=== PATIENT | male | born 1935 | race Caucasian/White ===

== ENCOUNTER 2017-02-14 12:03 | Inpatient (IN) | payer OTHER, MEDICARE ==
[~2017-02-14] VITALS: Ht 172.7 cm; Wt 71.4 kg
[2017-02-14] VITALS (10 sets, daily range): BP systolic 112–216; BP diastolic 58–114; PULSE 74–97; RESP 16–25; TEMP 97.6–99.1; O2SAT 95–100
[2017-02-14] MEDS ORDERED: HEPARIN SODIUM - IV 10,000 UNITS/10 ML VIAL IV STA (12:28)
[2017-02-14] MEDS ORDERED: SODIUM CHLOR 0.9% 1000 ML INJ 1,000 ML IV ONE (12:28)
--- NOTE | 2017-02-14 12:28 | PD ---
HPI Chief Complaint: Chest Pain Time Seen by Provider: 12:24 Travel History International Travel<30 days: No Contact w/Intl Traveler<30days: No Traveled to known affect area: No History of Present Illness HPI 81 year old male with history of hypertension, hyperlipidemia, Alzheimer disease , hypothyroidism, presents to the emergency department for evaluation of right sided chest pain. Acute onset yesterday while doing "nothing." Patient states at that time it was sharp and crushing. He states now it is "just enough to know that it is there." Denies any recent illnesses, fever, chills. States the pain does not radiate anywhere. Not exacerbated with deep inspiration. No report shortness of breath. Patient did feel lightheaded at the onset of the pain. He has not been nauseous. He has had no diaphoresis. He has no other symptoms to report at this time. PFSH Past Medical History Alzheimer's Disease: Yes Hypertension: Yes Thyroid Disease: Yes ?: Not Social History Tobacco Use: No Allergies-Medications (Allergen,Severity, Reaction): Coded Allergies: No Known Allergies (Unverified , 02/14/17) Review of Systems Except as stated in HPI: all other systems reviewed are Neg Physical Exam Narrative GENERAL: Well-nourished elderly male patient, lying in bed, in no acute distress SKIN: Focused skin assessment warm/dry. HEAD: Atraumatic. Normocephalic. EYES: Pupils equal and round. No scleral icterus. No injection or drainage. ENT: No nasal bleeding or discharge. Mucous membranes pink and moist. NECK: Trachea midline. No JVD. CARDIOVASCULAR: Regular rate and rhythm. No murmur appreciated. RESPIRATORY: No accessory muscle use. Clear to auscultation. Breath sounds equal bilaterally. GASTROINTESTINAL: Abdomen soft, non-tender, nondistended. Hepatic and splenic margins not palpable. MUSCULOSKELETAL: No obvious deformities. No clubbing. No cyanosis. No edema. NEUROLOGICAL: Awake and alert. No obvious cranial nerve deficits. Motor grossly within normal limits. Normal speech. Data Data Last Documented VS Vital Signs Date Time Temp Pulse Resp B/P Pulse Ox O2 Delivery O2 Flow Rate FiO2 02/14/17 12:30 99 Room Air 02/14/17 12:28 74 24 142/75 119/58 02/14/17 12:15 97.6 Orders Electrocardiogram (02/14/17 12:18) Basic Metabolic Panel (Bmp) (02/14/17 12:18) Ckmb (Isoenzyme) Profile (02/14/17 12:18) Complete Blood Count With Diff (02/14/17 12:18) Magnesium (Mg) (02/14/17 12:18) Prothrombin Time / Inr (Pt) (02/14/17 12:18) Act Partial Throm Time (Ptt) (02/14/17 12:18) Troponin I (02/14/17 12:18) Lipase (02/14/17 12:18) Chest, Single Ap (02/14/17 12:18) Ecg Monitoring (02/14/17 12:18) Bilateral Bp Monitoring (02/14/17 12:18) Iv Access Insert/Monitor (02/14/17 12:18) Oximetry (02/14/17 12:18) Oxygen Administration (02/14/17 12:18) Aspirin Chew (Aspirin Chew) (02/14/17 12:30) Sodium Chloride 0.9% Flush (Ns Flush) (02/14/17 12:30) Nitroglycerin Sl (Nitrostat Sl) (02/14/17 12:30) Sodium Chlorid 0.9% 500 Ml Inj (Ns 500 M (02/14/17 12:30) I-Stat Profile (02/14/17 12:28) I-Stat Creatinine (02/14/17 12:28) Calcium (02/14/17 12:28) Magnesium (Mg) (02/14/17 12:28) B-Type Natriuretic Peptide (02/14/17 12:28) Sodium Chlor 0.9% 1000 Ml Inj (Ns 1000 M (02/14/17 12:28) Sodium Chloride 0.9% Flush (Ns Flush) (02/14/17 12:30) Heparin Inj (Heparin Inj) (02/14/17 12:28) Admit Order (Ed Use Only) (02/14/17 12:32) Cardiac Catheterization (02/14/17 ) Heparin-Ns/Pf Inj (Heparin-Ns/Pf Inj) (02/14/17 12:34) MDM Medical Decision Making Medical Screen Exam Complete: Yes Emergency Medical Condition: Yes Medical Record Reviewed: Yes Differential Diagnosis ACS versus pleuritic pain versus costochondritis versus pneumonia versus influenza Narrative Course 81-year-old male presents to Emergency department for evaluation right sided chest pain. EKG is complete shows ST elevation in lead II, III, and aVF with depression in anterolateral leads. It is reviewed by my attending physician Dr. Amador who contacted medical administrative Dr. Duarte. Please refer to his documentation. 1228 STEMI alert is initiated. Diagnosis Primary Impression: STEMI (ST elevation myocardial infarction) Qualified Code: I21.3 - ST elevation myocardial infarction (STEMI), unspecified artery Admitting Information Admitting Physician Requests: Admit Condition: Stable Darline Escobar Feb 14, 2017 12:28
--- NOTE | 2017-02-14 12:28 | PD ---
Physical Exam Narrative Patient was seen by my project construction assistant manager and me. 81-year-old male with right-sided chest pain since yesterday. History hypertension and hyperlipidemia. Patient is a nonsmoker. Patient has family history heart disease. Patient denies history diabetes. Denies history of CAD. Data Data Last Documented VS Vital Signs Date Time Temp Pulse Resp B/P Pulse Ox O2 Delivery O2 Flow Rate FiO2 02/14/17 12:35 100 2.00 02/14/17 12:35 Nasal Cannula 02/14/17 12:28 74 24 142/75 119/58 02/14/17 12:15 97.6 Orders Electrocardiogram (02/14/17 12:18) Basic Metabolic Panel (Bmp) (02/14/17 12:18) Ckmb (Isoenzyme) Profile (02/14/17 12:18) Complete Blood Count With Diff (02/14/17 12:18) Magnesium (Mg) (02/14/17 12:18) Prothrombin Time / Inr (Pt) (02/14/17 12:18) Act Partial Throm Time (Ptt) (02/14/17 12:18) Troponin I (02/14/17 12:18) Lipase (02/14/17 12:18) Chest, Single Ap (02/14/17 12:18) Ecg Monitoring (02/14/17 12:18) Bilateral Bp Monitoring (02/14/17 12:18) Iv Access Insert/Monitor (02/14/17 12:18) Oximetry (02/14/17 12:18) Oxygen Administration (02/14/17 12:18) Aspirin Chew (Aspirin Chew) (02/14/17 12:30) Sodium Chloride 0.9% Flush (Ns Flush) (02/14/17 12:30) Nitroglycerin Sl (Nitrostat Sl) (02/14/17 12:30) Sodium Chlorid 0.9% 500 Ml Inj (Ns 500 M (02/14/17 12:30) I-Stat Profile (02/14/17 12:28) I-Stat Creatinine (02/14/17 12:28) Calcium (02/14/17 12:28) Magnesium (Mg) (02/14/17 12:28) B-Type Natriuretic Peptide (02/14/17 12:28) Sodium Chlor 0.9% 1000 Ml Inj (Ns 1000 M (02/14/17 12:28) Sodium Chloride 0.9% Flush (Ns Flush) (02/14/17 12:30) Heparin Inj (Heparin Inj) (02/14/17 12:28) Admit Order (Ed Use Only) (02/14/17 12:32) Cardiac Catheterization (02/14/17 ) Heparin-Ns/Pf Inj (Heparin-Ns/Pf Inj) (02/14/17 12:34) MDM Supervised Visit with SHELLEY: Yes Interpretation(s) Creatinine 1.5. Narrative Course Patient has ST elevation in [address] depression on anterior lateral leads. I spoke with Dr. Duarte, sewing department supervisor on-call. STEMI protocol will be initiated. Diagnosis Primary Impression: STEMI (ST elevation myocardial infarction) Qualified Code: I21.3 - ST elevation myocardial infarction (STEMI), unspecified artery Additional Impression: Renal insufficiency Admitting Information Admitting Physician Requests: it Derian Amador MD Feb 14, 2017 12:28
[2017-02-14] MEDS ORDERED: ASPIRIN 81 MG CHEW TAB PO ONE (12:30)
[2017-02-14] MEDS ORDERED: SODIUM CHLORID 0.9% 500 ML INJ 500 ML IV ONE (12:30)
[2017-02-14] MEDS ORDERED: NITROGLYCERIN 0.4 MG SL 25 TABS/BTL SL SCH (12:30)
[2017-02-14] MEDS ORDERED: SODIUM CHLORIDE 0.9% FLUSH 10 ML FLUSH IVF PRN ×2 (12:30)
[2017-02-14] MEDS ORDERED: HEPARIN-NS/PF INJ 500 ML ONE (12:34)
[2017-02-14] MEDS ORDERED: MEMA1TAB2 PO (12:36)
[2017-02-14] MEDS ORDERED: LISI-515 PO (12:36)
[2017-02-14] MEDS ORDERED: CYAN100025 SL (12:36)
[2017-02-14] MEDS ORDERED: DONE10TA7 PO (12:36)
[2017-02-14] MEDS ORDERED: GABA300C5 PO (12:36)
[2017-02-14] MEDS ORDERED: CO Q100C9 (12:36)
[2017-02-14] MEDS ORDERED: LEVO50TA4 PO (12:36)
[2017-02-14] MEDS ORDERED: SIMV40TA PO (12:36)
[2017-02-14] MEDS ORDERED: ASPI81CH CHEW (12:36)
[2017-02-14] MEDS ORDERED: VITA1000 PO (12:36)
[2017-02-14] MEDS ORDERED: CARB25TA9 PO (12:36)
--- NOTE | 2017-02-14 12:40 | RADRPT ---
EXAM DATE/TIME: 02/14/2017 12:18 [place] COMPARISON: No previous studies available for comparison. INDICATIONS : Chest pain. Stemi Alert. MEDICAL HISTORY : None. SURGICAL HISTORY : None. ENCOUNTER: Initial ACUITY: 1 day PAIN SCORE: 10/10 LOCATION: Bilateral chest FINDINGS: A single view of the chest demonstrates the lungs to be symmetrically aerated without evidence of mas s, infiltrate or effusion. The cardiomediastinal contours are unremarkable. Osseous structures are intact. CONCLUSION: No acute disease. Curtis Adam MD on February 14, 2017 at 12:38 Board Certified Radiologist. This report was verified electronically.
[2017-02-14] MEDS ORDERED: ASPIRIN 81 MG CHEW TAB ONE (12:41)
[2017-02-14] MEDS ORDERED: HEPARIN SODIUM - IV 10,000 UNITS/10 ML VIAL ONE (12:41)
[2017-02-14] MEDS ORDERED: NITROGLYCERIN-DEXTROSE INJ 250 ML ONE (12:41)
[2017-02-14 12:54] LABS: AUTOMATED NEUTROPHIL # 7.8 TH/MM3 (1.8-7.7); BASOPHIL % 0.1 % (0.0-2.0); EOSINOPHIL # 0.1 TH/MM3 (0-0.4); EOSINOPHIL % 0.5 % (0.0-4.0); HEMATOCRIT 43.5 % (39.0-51.0); HEMO FLAGS DIFF FINAL; LYMPH % 23.8 % (9.0-44.0); LYMPHOCYTE # 2.7 TH/MM3 (1.0-4.8); MEAN CELL VOLUME 88.4 FL (80.0-100.0); MEAN CORPUSCULAR HEMOGLOBIN 29.3 PG (27.0-34.0); MEAN CORPUSCULAR HGB CONC 33.1 % (32.0-36.0); MONO % 7.6 % (0.0-8.0); PLATELET COUNT 185 TH/MM3 (150-450); RED BLOOD COUNT 4.92 MIL/MM3 (4.50-5.90); RED CELL DISTRIBUTION WIDTH 12.8 % (11.6-17.2); WHITE BLOOD COUNT 11.4 TH/MM3 (4.0-11.0)
[2017-02-14 12:59] LABS: APTT (PATIENT) 26.3 SEC (24.3-30.1); INTERNATIONAL NORMALIZED RATIO 1.1 RATIO; PROTHROMBIN TIME - PATIENT 12.6 SEC (9.8-11.6)
[2017-02-14] MEDS ORDERED: MIDAZOLAM HCL 2 MG/2 ML VIAL ONE (13:02)
[2017-02-14 13:03] LABS: MAGNESIUM 2.3 MG/DL (1.5-2.5)
[2017-02-14] MEDS ORDERED: SODIUM CHLOR 0.9% 1000 ML INJ 1,000 ML IV SCH (13:22)
[2017-02-14 13:24] LABS: BICARBONATE 23.6 MEQ/L (21.0-32.0); MAGNESIUM 2.3 MG/DL (1.5-2.5); POTASSIUM 4.1 MEQ/L (3.5-5.1)
[2017-02-14] MEDS ORDERED: MISC INFORMATION XX ONE (13:30)
[2017-02-14] MEDS ORDERED: SODIUM CHLOR 0.9% 250 ML INJ 250 ML IV PRN (13:30)
[2017-02-14] MEDS ORDERED: ATROPINE SULFATE 1 MG/ML VIAL IV PRN (13:30)
--- NOTE | 2017-02-14 13:35 | CATHPROC ---
nuPSYS HIS Report Study Information Study Number Scheduled Start Study Start [id number] 02/14/2017 Feb 14 2017 12:37PM Referring Institution Facility Department 1 [facility] - Team Facilitator Physician and Clinical Staff Initial Cooper Drew Management Accounts Manager Pankaj Reeves,RN Management Accounts Manager Marcelo RN, Landen Recorder Leonel Lovett,RT(R) Scrub Jaxon Vargas,RT(R) Procedures Performed Procedure Location (Site) Vessel Name Angiogram LV LV Ventricle Coronary Angiograms LCA Left Coronary Coronary Angiograms RCA Right Coronary L Heart Cath PTCA ADD ON'S Equipment Time Executive Administrative Asst Description Size Mfg Part Number Used/Scraped TRANSDUCER, TRUWAVE [id number] 12:38 [employer]reme[employer] * Used W/STOCKCOCK *[id number] 13:11 [employer] MEDICAL VASCADE, FR6 CLOSURE SYSTEM FR 6\7 Used *[id number] *[id number] 534-620T *[id number] 534-650S *[id number] 534-650S *[id number] 12:38 [employer] PACK, CCL CUSTOM * Used *[id number] 12:38 [employer] BITEX PACER PEN, SKIN DUAL W/ RULER * Used *[id number] 13:03 [employer] 30 NEW INDEFLATOR Used *[id number] 12:38 [employer] SHEATH, FR6.5 PRELUDE 11CM FR 6.5 038ACT Used *[id number] 12:38 [employer] WIRE, 3MMJ .035 180CM 180CM Used *[id number] 12:38 NAMIC MANIFOLD, 4 PORT * Used *[id number] 12:38 [employer] OMNIPAQUE, 350 MG, 150ML 150ML [id number] Used 13:03 [employer] OMNIPAQUE, 350 MG, 150ML 150ML [id number] Used [id number] 12:38 [employer] BLANKET,WARM AIR CCL * Used *[id number] History: Current Medications Medication Dosage/Unit Route Frequency Last Date/Time Taken ASA Statins (any) History: Allergies Allergy Reaction NKDA History: Risk Factors Family History of Hypertension Dyslipidemia Previous [place] Previous Heart Failure Premature CAD Yes No No No No Prior Valve Prior PCI Prior CABG Surgery No No No Cerebrovascular Peripheral Artery Chronic Lung On Dialysis Diabetes Disease Disease Disease No No No No No History: Risk Factors Selection Items Hyperlipidemia History: Symptoms/Diagnosis Selection Items Chest pain History: Stress Tests Stress or Imaging Studies Performed No History: Other Disease Selection Items HTN Labs Hgb (g/dl) Hct (%) RBC (MIL/MM3) WBC (l/cumm) Platelets (thousands) 11.60-17.00 35.00-51.00 4.00-5.90 4.00-11.00 150.00-450.00 14.4 43.5 4.9 11.4 185 Glucose (mg/dl) BUN (mg/dl) Creatinine (mg/dl) BUN:Creatinine (1:x) 74.00-106.00 7.00-18.00 0.50-1.30 10.00-20.00 112 26 1.6 16.3 Na (meq/l) K (meq/l) Cl (meq/l) CO2 (mmol/L) Ca (mg/dl) 136.00-145.00 3.50-5.10 98.00-107.00 21.00-32.00 8.50-10.10 138 4.1 104 23.6 8.9 PT (sec) PTT (sec) INR (PTT:PT) 9.80-11.60 24.30-30.10 0.90-1.10 12.6 26.3 1.1 Medication Medication Total Dose (Bolus/Oral) Medication Total Dosage/Unit 1% XYLOCAINE 20 mL VERSED 1 mg Medications (Bolus/Oral) Medication Time Given Dosage/Unit Administered By Reason 1% XYLOCAINE 02/14/2017 1:01:51 PM 20 mL Cooper Lowry 20 mL 1% XYLOCAINE given in lab by Cooper Lowry in Right Groin via Subcutaneous. VERSED 02/14/2017 1:02:23 PM 1 mg Landen Robertson RN 1 mg VERSED given in lab by Landen Robertson RN in Right Antecubital via Peripheral IV. Ordered by Cooper Lowry. Medication (Drip) Medication Time Given Dosage/Unit Concentration/Unit Diluent (ml) Solution IV Solutions 02/14/2017 12:51:56 PM 0 mL (IV) 1000 NaCl .9 Patient arrived on IV Solutions in Left Antecubital via Peripheral IV. Pump/Drip Flow = 20 ml/hr usin g NaCl .9. Ordered by Cooper Lowry. Initial Case Assessment Cardiovascular HR NIBP 93 115/60 Neurological State Alert Comment: PATIENT HAS HISTORY OF DEMENTIA Respiration - General SpO2 (%) O2 (lpm) 97 2 Chronological Log Time Study Chronological Log 12:35:24 Emergency Room notified that Team Facilitator is ready. 12:47:49 Patient arrived via Bed. 12:47:50 Patient Name, D.O.B, / Armband Verified By R.N. Vitals capture started with the following parameters, Patient=Adult, Interval=5 min, Initial Pr qsmary=395 mmHg, 12:50:47 Deflation Rate=5 mmHg 12:50:59 ER PHYSICIAN at bedside. 12:51:25 Tori Prominences Protected 12:51:27 A # 20 IV was noted in the Antecubital (left). Grade = 0 12:51:47 A # 20 IV was noted in the Antecubital (right). Grade = 0 Patient arrived on IV Solutions in Left Antecubital via Peripheral IV. Pump/Drip Flow = 20 ml/h r using NaCl .9. Ordered 12:51:56 by Cooper Lowry. 12:52:07 OIKM=116/60 mmhg, SpO2=98.0 %, Itzel=10 Assessment: Initial Case, HR=93 BPM, RYCK=724/60 mmhg 12:53:05 Neurological: State=Alert, Comment=PATIENT HAS HISTORY OF DEMENTIA Respiration: SpO2=97 %, O2=2 lpm 12:55:02 MD notified ready 12:55:21 Bilateral groins prepped with 2% chlorhexidine, and with a 3 min. waiting time. 12:56:23 HR=76 bpm, DJLF=130/70 mmhg, SpO2=97.0 %, Resp=18 B/min 12:57:14 Pressure channel 1 zeroed. 12:57:17 Reference ECG taken 12:58:08 MD arrived. Time Out. Correct patient, correct procedure,correct physician, ,power injector not loaded with contrast with surgical 13:01:13 team present. Time Out Concurred by MD, individual staff and SCIENTIFIC HELPER in procedure 13:01:24 HR=95 bpm, JYAB=449/67 mmhg, SpO2=96 %, Resp=23 B/min 13:01:48 Case Start 13:01:51 20 mL 1% XYLOCAINE given in lab by Cooper Lowry in Right Groin via Subcutaneous. 13:02:23 1 mg VERSED given in lab by Landen Robertson RN in Right Antecubital via Peripheral IV. Ordered by Cooper Lowry. 13:02:28 Access site was Right Femoral Artery. 13:02:39 A SHEATH, FR6.5 PRELUDE 11CM FR 6.5 was advanced into the Fem Art (right) using the Sal technique. 13:03:01 Activated Clotting Time Drawn 13:03:07 OMNIPAQUE, 350 MG, 150ML 150ML and 30 NEW INDEFLATOR added. A JL 4.0 INFINITI CATHETER FR 6 was advanced over a wire. OMNIPAQUE, 350 MG, 150ML 150ML was us ed for 13:03:43 injections. 13:04:14 The LCA was injected and visualized at various angles. OMNIPAQUE, 350 MG, 150ML 150ML used . Recorded Pressure: Ao, HR=81, Condition=Condition 1 13:04:40 (Aorta) Ao 90/50/68 13:05:18 Catheter was removed A 3DRC INFINITI CATHETER FR 6 was advanced over a wire. OMNIPAQUE, 350 MG, 150ML 150ML was used for 13:05:20 injections. 13:05:30 The RCA was injected and visualized at various angles. OMNIPAQUE, 350 MG, 150ML 150ML used . 13:06:25 HR=94 bpm, VJTV=717/69 mmhg, SpO2=97.0 %, Resp=19 B/min, Itzel=9 13:07:31 ACT (Normal Range 90-180) = 227 13:07:54 Catheter was removed A PIGTAIL STR INFINITI CATHETER FR 6 was advanced over a wire. OMNIPAQUE, 350 MG, 150ML 150ML w as used for 13:07:56 injections. 13:08:19 power injector loaded with 50cc omnipaque Recorded Pressure: LV, HR=95, Condition=Condition 1 13:08:47 (Left Ventricle) LV 98/5/8 13:09:04 The LV was injected at 12 cc/sec for a total of 42. OMNIPAQUE, 350 MG, 150ML 150ML used. Recorded Pressure: LV, Ao, HR=92, Condition=Condition 1 13:10:11 (Left Ventricle) LV 94/5/7, (Aorta) Ao 97/53/73 13:10:35 Catheter was removed 13:10:57 An injection in the Fem Art (right) was made through the SHEATH, FR6.5 PRELUDE 11CM FR 6.5. 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 13:21:20 HR=88 bpm, JFVS=410/66 mmhg, SpO2=96.0 %, Resp=13 B/min, Itzel=9 13:24:40 cic charge nurse called to notify 445 bed for patient 13:26:21 HR=88 bpm, VNMB=962/70 mmhg, SpO2=96.0 %, Resp=12 B/min, Itzel=9 13:28:45 bed arrived 13:33:20 Patient moved to bed 13:33:46 Bedside Report will be given. Pankaj talked to Evelin(Rn) recieving nurse 13:34:14 A Left Heart Cath was performed. 13:34:19 Contrast Scanned 13:34:23 Implantable Device card placed in patient's chart. End Study - Contrast Media Used In Study Contrast Total Opened (mL) Total Used (mL) Total Wasted (mL) Omnipaque 60 60 0 End Study - Maximum Contrast Load Max Contrast Load (mL) 212.5 End Study - Radiation Exposure Fluoro Time (minutes) 2.0 End Study - Patient Disposition Complications No
[2017-02-14 13:42] LABS: CKMB 126.5 NG/ML (0.5-3.6)
--- NOTE | 2017-02-14 15:45 | PD.CONS ---
History of Present Illness Service CT Surgery Consult Requested By Dr. Duarte Reason for Consult STEMI, left main and 3 vessel CAD Primary Care Physician Diagnoses: (1) STEMI (ST elevation myocardial infarction) (2) CAD (coronary artery disease) History of Present Illness 81 y/o male with known Alzheimer's dementia and Parkinson's presents with ~1.5 day h/o right chest pain, diaphoresis, nausea, malaise. He went to the ID and was sent to the ED where he was found to have inferior lead ST elevation. STEMI alert was called and he underwent emergent left heart cath. He was found to have left main and 3 vessel CAD. He ruled-in for an OK with an initial troponin of ~22. He is being considered for CABG. Review of Systems ROS Limitations: Clinical Condition Constitutional: COMPLAINS OF: Diaphoretic episodes, Fatigue, DENIES: Fever, Weight gain, Weight loss, Chills, Dizziness, Change in appetite, Night Sweats Endocrine: DENIES: Heat/cold intolerance, Polydipsia, Polyuria, Polyphagia Eyes: DENIES: Blurred vision, Diplopia, Eye inflammation, Eye pain, Vision loss , Photosensitivity, Double Vision Ears, nose, mouth, throat: DENIES: Tinnitus, Hearing loss, Vertigo, Nasal discharge, Oral lesions, Throat pain, Hoarseness, Ear Pain, Running Nose, Epistaxis, Sinus Pain, Toothache, Odynophagia Respiratory: COMPLAINS OF: Shortness of breath, DENIES: Apneas, Cough, Snoring , Wheezing, Hemoptysis, Sputum production Cardiovascular: COMPLAINS OF: Chest pain, Dyspnea on Exertion, DENIES: Palpitations, Syncope, PND, Lower Extremity Edema, Orthopnea, Claudication Gastrointestinal: DENIES: Abdominal pain, Black stools, Bloody stools, Constipation, Diarrhea, Nausea, Vomiting, Difficulty Swallowing, Anorexia Genitourinary: COMPLAINS OF: Urinary frequency, DENIES: Sexual dysfunction, Urinary incontinence, Urgency, Hematuria, Dysuria, Nocturia, Penile Discharge, Testicular Pain, Testicular Swelling Musculoskeletal: COMPLAINS OF: Joint pain, Muscle aches, DENIES: Stiffness, Joint Swelling, Back pain, Neck pain Integumentary: DENIES: Abnormal pigmentation, Nail changes, Pruritus, Rash Hematologic/lymphatic: DENIES: Bruising, Lymphadenopathy Immunologic/allergic: DENIES: Eczema, Urticaria Neurologic: COMPLAINS OF: Tremor, Poor Balance, DENIES: Abnormal gait, Headache, Localized weakness, Paresthesias, Seizures, Speech Problems c/o short-term memory impairment Past Family Social History Allergies: Coded Allergies: No Known Allergies (Unverified , 02/14/17) Past Medical History HTN Hyperlipdemia Alzheimer's Parkinsons's Hypothyroidism Active Ordered Medications Current Medications Medications (Trade) Dose Ordered Sig/[place] Route Start Time Stop Time Status Last Admin (NS Flush) 2 ml UNSCH PRN IVF 02/14/17 12:30 Sodium Chloride 2 ml 2 ml UNSCH PRN IVF 02/14/17 12:30 (NS 1000 ml Inj) 1,000 ml @ 125 mls/hr Q8H IV 02/14/17 13:22 02/14/17 19:21 02/14/17 13:22 (Atropine Inj) 0.5 mg UNSCH PRN IV 02/14/17 13:30 (Ecotrin Ec) 325 mg DAILY PO 02/15/17 09:00 (Lipitor) 40 mg HS PO 02/14/17 21:00 (Heparin Inj) 4,500 units ONCE ONCE IV 02/14/17 17:30 02/14/17 17:31 (Heparin Inj) 5,000 units UNSCH PRN IV 02/14/17 19:30 Heparin Sodium (Porcine) 2500 units 2,500 units UNSCH PRN IV 02/14/17 19:30 (Heparin-D5W Inj) 250 ml @ 0 mls/hr TITRATE IV 02/14/17 17:30 Family History Mother passed from cancer Father passed from heart disease Social History and lives at home Retired Denies tobacco, ETOH use Physical Exam Vital Signs Vital Signs Date Time Temp Pulse Resp B/P Pulse Ox O2 Delivery O2 Flow Rate FiO2 02/14/17 13:40 95 Nasal Cannula 2.00 02/14/17 13:40 97.7 86 18 116/77 95 02/14/17 12:38 89 22 118/70 99 Room Air 02/14/17 12:35 100 2.00 02/14/17 12:35 100 Nasal Cannula 2.00 02/14/17 12:30 99 Room Air 02/14/17 12:30 99 Room Air 02/14/17 12:28 74 24 142/75 99 Room Air 119/58 02/14/17 12:15 95 97 Room Air 02/14/17 12:15 97.6 97 25 142/75 99 Room Air 02/14/17 12:08 97.8 92 16 216/114 95 Physical Exam GENERAL: This is a well-nourished, well-developed patient, in no apparent distress. SKIN: No rashes, ecchymoses or lesions. Cool and dry. HEAD: Atraumatic. Normocephalic. No temporal or scalp tenderness. EYES: Pupils equal round and reactive. Extraocular motions intact. No scleral icterus. No injection or drainage. ENT: Nose without bleeding, purulent drainage or septal hematoma. Throat without erythema, tonsillar hypertrophy or exudate. Uvula midline. Airway patent. NECK: Trachea midline. No JVD or lymphadenopathy. Supple, nontender, no meningeal signs. CARDIOVASCULAR: Regular rate and rhythm without murmurs, gallops, or rubs. RESPIRATORY: Clear to auscultation. Breath sounds equal bilaterally. No wheezes , rales, or rhonchi. GASTROINTESTINAL: Abdomen soft, non-tender, nondistended. No hepato-splenomegaly , or palpable masses. No guarding. MUSCULOSKELETAL: Extremities without clubbing, cyanosis, or edema. No joint tenderness, effusion, or edema noted. No calf tenderness. Negative Homans sign bilaterally. NEUROLOGICAL: Awake and alert. Cranial nerves II through XII intact. Motor and sensory grossly within normal limits. Five out of 5 muscle strength in all muscle groups. Normal speech. Tremor in both upper extremities Laboratory Laboratory Tests Test 02/14/17 12:25 White Blood Count 11.4 Red Blood Count 4.92 Hemoglobin 14.4 Bedside Hemoglobin 15.0 Hematocrit 43.5 Bedside Hematocrit 44.0 Mean Corpuscular Volume 88.4 Mean Corpuscular Hemoglobin 29.3 Mean Corpuscular Hemoglobin 33.1 Concent Red Cell Distribution Width 12.8 Platelet Count 185 Mean Platelet Volume 8.1 Neutrophils (%) (Auto) 68.0 Lymphocytes (%) (Auto) 23.8 Monocytes (%) (Auto) 7.6 Eosinophils (%) (Auto) 0.5 Basophils (%) (Auto) 0.1 Neutrophils # (Auto) 7.8 Lymphocytes # (Auto) 2.7 Monocytes # (Auto) 0.9 Eosinophils # (Auto) 0.1 Basophils # (Auto) 0.0 CBC Comment DIFF FINAL Differential Comment Prothrombin Time 12.6 Prothromb Time International 1.1 Ratio Activated Partial 26.3 Thromboplast Time Bedside Sodium 138 Sodium Level 138 Bedside Potassium 4.0 Potassium Level 4.1 Bedside Chloride 102 Chloride Level 104 Carbon Dioxide Level 23.6 Anion Gap 10 Bedside Blood Urea Nitrogen 27 Blood Urea Nitrogen 26 Creatinine 1.60 Bedside Creatinine 1.5 Estimat Glomerular Filtration 42 Rate Bedside Glucose 112 Random Glucose 102 Calcium Level 8.8 Magnesium Level 2.3 Total Creatine Kinase 1251 Creatine Kinase MB 126.5 Creatine Kinase MB % 10.1 Troponin I 22.20 B-Type Natriuretic Peptide 236 Lipase 110 Result Diagram: 02/14/17 1225 02/14/17 1225 Imaging Last Impressions Chest X-Ray 02/14/17 1218 Signed Impressions: Service Date/Time: Tuesday, February 14, 2017 12:18 - CONCLUSION: No acute disease. Curtis Adam MD Course Currently, pain-free and stable. Assessment and Plan Problem List: (1) Renal insufficiency Status: Acute (2) STEMI (ST elevation myocardial infarction) Status: Acute (3) CAD (coronary artery disease) Status: Acute Assessment and Plan ECHO and non-contrast chest CT scan requested. I discussed CABG with him and his and he would like to proceed. I informed his that patients with pre-existing demential often have worsening of their symptoms postoperatively. He also has renal insufficiency in addition to this rather significant OK, so I will monitor his creatinine and review these studies prior to scheduling a date/time. Discussed Condition With patient and his Problem Qualifiers (1) STEMI (ST elevation myocardial infarction): Qualified Code: I21.3 - ST elevation myocardial infarction (STEMI), unspecified artery (2) CAD (coronary artery disease): Qualified Code: I25.110 - Coronary artery disease involving [place] coronary artery of [place] heart with unstable angina pectoris Enriqueta Gee MD Feb 14, 2017 15:45
--- NOTE | 2017-02-14 17:02 | ECHRPT ---
Indication: Chest pain, unspecified CONCLUSIONS The left ventricular systolic function is low normal with an estimated ejection fraction in the rang e of 50- 55%. Wall thickness is measured at the upper limits of normal. Normal left ventricular size. No definite wall motion abnormalities. Trace mitral valve regurgitation. There is trace tricuspid valve regurgitation. The estimated pulmonary arterial pressure is 30 mmHg. BP: / HR: Rhythm: Other MEASUREMENTS (Male / Female) Normal Values Technical Quality:Good 2D ECHO LV Diastolic Diameter PLAX 4.4 cm 4.2 - 5.9 / 3.9 - 5.3 cm LV Systolic Diameter PLAX 3.4 cm IVS Diastolic Thickness 1.0 cm 0.6 - 1.0 / 0.6 - 0.9 cm LVPW Diastolic Thickness 1.0 cm 0.6 - 1.0 / 0.6 - 0.9 cm LV Relative Wall Thickness 0.4 LVOT Diameter 2.1 cm Ascending Aorta Diameter 3.1 cm M-MODE Aortic Root Diameter MM 2.2 cm LA Systolic Diameter MM 3.3 cm LA Ao Ratio MM 1.5 AV Cusp Separation MM 1.8 cm DOPPLER AV Peak Velocity 103.0 cm/s AV Peak Gradient 4.2 mmHg LVOT Peak Velocity 75.0 cm/s LVOT Peak Gradient 2.3 mmHg AV Area Cont Eq pk 2.5 cm MR Peak Velocity 444.0 cm/s MR Peak Gradient 78.9 mmHg Mitral E Point Velocity 72.1 cm/s Mitral A Point Velocity 91.8 cm/s Mitral E to A Ratio 0.8 LV E' Lateral Velocity 8.4 cm/s Mitral E to LV E' Lateral Ratio 8.6 LV E' Septal Velocity 3.9 cm/s Mitral E to LV E' Septal Ratio 18.5 TR Peak Velocity 221.0 cm/s TR Peak Gradient 19.5 mmHg FINDINGS LEFT VENTRICLE The left ventricular systolic function is low normal with an estimated ejection fraction in the rang e of 50- 55%. Wall thickness is measured at the upper limits of normal. Normal left ventricular size. No definite wall motion abnormalities. RIGHT VENTRICLE Upper normal right ventricular size with possibly mildly reduced systolic function. LEFT ATRIUM The left atrial size is normal. RIGHT ATRIUM The right atrial size is normal. ATRIAL SEPTUM Normal atrial septal thickness without atrial level shunting by limited color doppler interrogation. AORTA The aortic root and proximal ascending aorta are normal in size on limited imaging. MITRAL VALVE Trace mitral valve regurgitation. AORTIC VALVE Trileaflet aortic valve. No aortic valve stenosis or regurgitation. TRICUSPID VALVE There is trace tricuspid valve regurgitation. The estimated pulmonary arterial pressure is 30 mmHg. PULMONARY VALVE The pulmonary valve is not well visualized. VESSELS The inferior vena cava is normal in size. PERICARDIUM No pericardial effusion. Cooper Duarte MD (Electronically Signed) Final Date:14 February 2017 17:01
[2017-02-14] MEDS ORDERED: HEPARIN SODIUM - IV 10,000 UNITS/10 ML VIAL IV ONE (17:30)
[2017-02-14] MEDS: HEPARIN-D5W INJ 250 ML IV SCH (17:33)
--- NOTE | 2017-02-14 18:17 | MA ---
cc: SISSREEDHAR DATE: 02/14/2017 PROCEDURE Emergency left heart catheterization, selective coronary angiography, left ventriculography. PROCEDURE NOTE The patient was brought emergently to the cardiac catheterization laboratory in the midst of a suspected acute ST-elevation myocardial infarction. The right groin was prepped and draped as per policy and anesthetized with 1% lidocaine. Arterial access was obtained via the right femoral artery and a 6-[place] sheath placed. Coronary arteriography was performed using 6-[place] Sal left 4.0 and right progressive catheters. Left ventriculography was done using a standard 6-[place] pigtail. There were no apparent immediate complications. His arteriotomy site was closed with V[place] with the achievement of good hemostasis. HEMODYNAMIC RESULTS Left ventricle 94 with an end-diastolic pressure of 10. Aorta 97/53 with mean of 73. There was no significant transvalvular aortic gradient on pullback of the pigtail catheter. CORONARY ARTERIOGRAPHY The left main is diffusely diseased. There is irregular ulcerated hazy severe disease in the distal left main resulting in up to 80-90% stenosis, involving the origins of the LAD and left circumflex. The left circumflex is a medium-sized vessel giving rise to tiny obtuse marginals. There is likely severe disease at the ostium of the left circumflex. The very proximal left circumflex also has 95% mildly calcified disease. The second obtuse marginal is tiny and may have 50% ostial stenosis. There is a high diagonal or ramus intermedius which on one view has up to 80% stenosis. The left anterior descending is diffusely diseased and moderately calcified. There is up to 95% stenosis proximally and 80% stenosis in the mid section. The distal LAD is normal. The LAD appears to give rise to a tiny diagonal which is free of disease. The right coronary artery appears to be totally occluded at its origin. There are scant feml-av-uciom collaterals. LEFT VENTRICULOGRAPHY Contrast injection of the left ventricle reveals no definite segmental wall motion abnormalities. Ejection fraction is estimated at 50%. CONCLUSION 1. Severe left main and severe three-vessel coronary artery disease. 2. Low normal left ventricular systolic function with estimated ejection fraction of 50%. DISCUSSION The patient will be referred for bypass surgery. Bypass grafts could be placed to the LAD, left circumflex, ramus intermedius, possibly the right coronary. MD DIANA Cooper/MARKO /1:24 PM /6:15 PM [facility]ITAL[facility]ila
--- NOTE | 2017-02-14 18:25 | MB ---
cc: SREEDHAR ALEGRE DATE OF CONSULTATION: 02/14/2017 REASON FOR CONSULTATION: Acute ST-elevation myocardial infarction. HISTORY OF PRESENT ILLNESS The patient is a 81-year-old white male with a history of hypertension, hyperlipidemia, Parkinson's disease, Alzheimer's disease who presented to the hospital with chest pain. For the past two weeks and particularly over the last two days he has had intermittent episodes of right-sided sharp chest pain without associated shortness of breath, nausea or diaphoresis. This morning he became especially concerned as the pain was severe and he had a near-syncopal episode while at the [facility]. He denies pleurisy, palpitations, pedal edema, paroxysmal nocturnal dyspnea. For the most part he is sedentary. At the present time he is resting comfortably denying any chest pain. He thinks the chest discomfort resolved about an hour ago. PAST MEDICAL HISTORY As above. No other details currently available. CARDIAC MEDICATIONS AT HOME: 1. Aspirin 81 mg daily. 2. Lisinopril 20 mg daily. 3. Simvastatin 40 mg q.h.s. ALLERGIES NO KNOWN DRUG ALLERGIES. FAMILY HISTORY Noncontributory. SOCIAL HISTORY The patient quit smoking 35 years ago. There is no history of alcohol abuse. REVIEW OF SYSTEMS: As in the history of present illness, otherwise negative or noncontributory. PHYSICAL EXAMINATION: VITAL SIGNS: Blood pressure is 94/53, with a pulse of 70, respiratory rate 20. GENERAL: He is a well-developed, well-nourished white male in no acute distress. HEENT: Jugular venous pressure is normal. Carotid pulses are 2+ bilaterally and without bruits. CHEST: Reveals clear lung quiles. CARDIAC: He has a regular rhythm and rate, with a grade 1/6 systolic ejection murmur heard at the base. No definite gallop is audible. The S2 heart sound is normal. ABDOMEN: He has a soft, nontender abdomen. Bowel sounds are present. There is no definite hepatosplenomegaly. EXTREMITIES: No clubbing, cyanosis or edema. Peripheral pulses are normal throughout. EKG shows sinus rhythm, inferior infarct, age undetermined, possibly acute. LABORATORY DATA: Includes WBC of 11.4, hemoglobin 14.4, platelet count 185, potassium 4.1, BUN 26, creatinine 1.6. CK 1251. INR 1.1. Chest x-ray shows no acute disease. IMPRESSION: Abnormal EKG suggesting inferior infarct age undetermined, possibly acute, atypical chest right-sided chest pains in this 81-year-old white male with a history of hypertension, hyperlipidemia, Parkinson's disease, Alzheimer's disease. At this time he has continued intermittent right-sided chest pain. His EKG does show inferior ST elevation with reciprocal changes. He does also have inferior Q-waves and he may have had his infarction some time ago. The chest pain at present is not pleuritic or suggestive of pericarditis. In light of the abnormal EKG and ongoing chest pains, I would agree with the need for emergent cardiac catheterization. The nature of this procedure and potential risks have been outlined to the patient's . They agree to proceed. RECOMMENDATIONS 1. Emergency cardiac catheterization. 2. Eventually start beta tere and EDEN inhibitor therapy if blood pressures allow. 3. Check a fasting lipid profile. MD DIANA Cooper/MARKO /1:43 PM /6:23 PM [facility]
[2017-02-14] MEDS ORDERED: HEPARIN SODIUM - IV 10,000 UNITS/10 ML VIAL IV PRN ×2 (19:30)
[2017-02-14 20:28] LABS: CKMB 155.8 NG/ML (0.5-3.6)
[2017-02-14] MEDS: ATORVASTATIN 40 MG TAB PO SCH (21:10)
[2017-02-14 23:48] LABS: APTT (PATIENT) 65.2 SEC (24.3-30.1)
[2017-02-15] VITALS: BP 151/64; PULSE 78; RESP 22; TEMP 98.7; O2SAT 96
[2017-02-15 04:00] VITALS: BP 119/73; PULSE 84; RESP 18; TEMP 98.3; O2SAT 91
[2017-02-15 07:47] LABS: APTT (PATIENT) 61.2 SEC (24.3-30.1)
[2017-02-15 08:00] LABS: BICARBONATE 21.6 MEQ/L (21.0-32.0)
--- NOTE | 2017-02-15 08:10 | PD.CARD.PN ---
Subjective Subjective Remarks Denies CP, dyspnea, dizziness, groin pain, palpitations. Objective Medications Item Value Date Time Aspirin 325 mg 02/15/17 0900 (Ecotrin Ec) DAILY/PO Atorvastatin 40 mg 02/14/17 2100 Calcium HS/PO 02/14/172109 (Lipitor) Heparin Sodium/ 250 ml @ 0 mls/hr 02/14/17 1730 Dextrose TITRATE/IV 02/14/17 1733 Vital Signs / I&O Vital Signs Date Time Temp Pulse Resp B/P Pulse Ox O2 Delivery O2 Flow Rate FiO2 02/15/17 04:00 91 Room Air 02/15/17 04:00 84 02/15/17 04:00 98.3 84 18 119/73 91 02/15/17 00:00 78 02/15/17 00:00 98.7 78 22 151/64 96 02/15/17 00:00 96 Room Air 02/14/17 20:00 96 Room Air 02/14/17 20:00 92 02/14/17 20:00 99.1 92 20 130/73 96 02/14/17 16:00 98 Nasal Cannula 2.00 02/14/17 15:00 86 02/14/17 15:00 97.8 85 16 112/71 98 02/14/17 14:00 85 02/14/17 13:40 95 Nasal Cannula 2.00 02/14/17 13:40 97.7 86 18 116/77 95 02/14/17 12:38 89 22 118/70 99 Room Air 02/14/17 12:35 100 2.00 02/14/17 12:35 100 Nasal Cannula 2.00 02/14/17 12:30 99 Room Air 02/14/17 12:30 99 Room Air 02/14/17 12:28 74 24 142/75 99 Room Air 119/58 02/14/17 12:15 95 97 Room Air 02/14/17 12:15 97.6 97 25 142/75 99 Room Air 02/14/17 12:08 97.8 92 16 216/114 95 I/O 02/14/17 02/14/17 02/14/17 02/15/17 02/15/17 02/15/17 07:00 15:00 23:00 07:00 15:00 23:00 Intake Total 440 ml 852 ml Output Total 400 ml Balance 40 ml 852 ml Intake Oral 0 ml 200 ml IV Total 440 ml 652 ml Output Urine Total 400 ml # Voids 6 # Bowel Movements 0 0 Physical Exam GENERAL: No acute distress. HEENT: Jugular venous pressure is normal. CHEST: Lungs clear to auscultation bilaterally. Unlabored respiratory effort. CARDIAC: Regular rate and rhythm without S3, S4, or murmur. ABDOMEN: Soft, nontender, no hepatosplenomegaly. Bowel sounds present. EXTREMITIES: No clubbing, cyanosis, or edema. Right groin nontender, no hematoma. Laboratory Laboratory Tests Test 02/14/17 02/14/17 02/14/17 02/15/17 12:25 19:00 23:30 07:28 White Blood Count 11.4 TH/MM3 Red Blood Count 4.92 MIL/MM3 Hemoglobin 14.4 GM/DL Bedside Hemoglobin 15.0 G/DL Hematocrit 43.5 % Bedside Hematocrit 44.0 % Mean Corpuscular Volume 88.4 FL Mean Corpuscular Hemoglobin 29.3 PG Mean Corpuscular Hemoglobin 33.1 % Concent Red Cell Distribution Width 12.8 % Platelet Count 185 TH/MM3 Mean Platelet Volume 8.1 FL Neutrophils (%) (Auto) 68.0 % Lymphocytes (%) (Auto) 23.8 % Monocytes (%) (Auto) 7.6 % Eosinophils (%) (Auto) 0.5 % Basophils (%) (Auto) 0.1 % Neutrophils # (Auto) 7.8 TH/MM3 Lymphocytes # (Auto) 2.7 TH/MM3 Monocytes # (Auto) 0.9 TH/MM3 Eosinophils # (Auto) 0.1 TH/MM3 Basophils # (Auto) 0.0 TH/MM3 CBC Comment DIFF FINAL Differential Comment Prothrombin Time 12.6 SEC Prothromb Time International 1.1 RATIO Ratio Activated Partial 26.3 SEC 65.2 SEC 61.2 SEC Thromboplast Time Bedside Sodium 138 MMOL/L Sodium Level 138 MEQ/L 140 MEQ/L Bedside Potassium 4.0 MMOL/L Potassium Level 4.1 MEQ/L 4.0 MEQ/L Bedside Chloride 102 MMOL/L Chloride Level 104 MEQ/L 108 MEQ/L Carbon Dioxide Level 23.6 MEQ/L 21.6 MEQ/L Anion Gap 10 MEQ/L 10 MEQ/L Bedside Blood Urea Nitrogen 27 MG/DL Blood Urea Nitrogen 26 MG/DL 23 MG/DL Creatinine 1.60 MG/DL 1.23 MG/DL Bedside Creatinine 1.5 MG/DL Estimat Glomerular Filtration 42 ML/MIN 57 ML/MIN Rate Bedside Glucose 112 MG/DL Random Glucose 102 MG/DL 108 MG/DL Calcium Level 8.8 MG/DL 7.7 MG/DL Magnesium Level 2.3 MG/DL Total Creatine Kinase 1251 U/L 1579 U/L Creatine Kinase MB 126.5 NG/ML 155.8 NG/ML Creatine Kinase MB % 10.1 % 9.9 % Troponin I 22.20 NG/ML B-Type Natriuretic Peptide 236 PG/ML Lipase 110 U/L Triglycerides Level 52 MG/DL Cholesterol Level 104 MG/DL Assessment and Plan Problem List: (1) CAD (coronary artery disease) Assessment and Plan: Stable overnight. No further CP. No definite CHF/ arrhythmias. Dr. Gee consult noted, appreciated. REC try to start low dose beta tere, hold off on EDEN-I or ARB with relatively low BP's and renal insufficiency continue aspirin, heparin drip await CABG (2) Hypertension Assessment and Plan: Normotensive. Continue to monitor. (3) Hyperlipidemia Assessment and Plan: Lipid profile pending. Continue statin. Code Status full code Discussed Condition With patient Problem Qualifiers (1) CAD (coronary artery disease): Qualified Code: I25.110 - Coronary artery disease involving [place] coronary artery of [place] heart with unstable angina pectoris (2) Hypertension: Qualified Code: I10 - Essential hypertension (3) Hyperlipidemia: Qualified Code: E78.5 - Hyperlipidemia, unspecified hyperlipidemia type Cooper Duarte MD Feb 15, 2017 08:10
[2017-02-15 08:14] LABS: HDL CHOLESTEROL 64.8 MG/DL (40.0-60.0)
[2017-02-15 08:39] LABS: CKMB 102.9 NG/ML (0.5-3.6)
[2017-02-15 08:50] VITALS: BP 136/81; PULSE 96; RESP 17; TEMP 99.7; O2SAT 93
[2017-02-15] MEDS: DONEPEZIL HCL 5 MG TAB PO SCH (09:00)
[2017-02-15] MEDS: CYANOCOBALAMIN 1,000 MCG TAB PO SCH (09:00)
--- NOTE | 2017-02-15 09:08 | PD.CAR.PN ---
CVT Progress Note Subjective/Hospital Course: s/p Inferior STEMI. Denies chest pain, nausea. Objective: Vital Signs Date Time Temp Pulse Resp B/P Pulse Ox O2 Delivery O2 Flow Rate FiO2 02/15/17 08:54 93 Room Air 02/15/17 08:50 99.7 96 17 136/81 93 02/15/17 08:50 96 02/15/17 04:00 91 Room Air 02/15/17 04:00 84 02/15/17 04:00 98.3 84 18 119/73 91 02/15/17 00:00 78 02/15/17 00:00 98.7 78 22 151/64 96 02/15/17 00:00 96 Room Air 02/14/17 20:00 96 Room Air 02/14/17 20:00 92 02/14/17 20:00 99.1 92 20 130/73 96 02/14/17 16:00 98 Nasal Cannula 2.00 02/14/17 15:00 86 02/14/17 15:00 97.8 85 16 112/71 98 02/14/17 14:00 85 02/14/17 13:40 95 Nasal Cannula 2.00 02/14/17 13:40 97.7 86 18 116/77 95 02/14/17 12:38 89 22 118/70 99 Room Air 02/14/17 12:35 100 2.00 02/14/17 12:35 100 Nasal Cannula 2.00 02/14/17 12:30 99 Room Air 02/14/17 12:30 99 Room Air 02/14/17 12:28 74 24 142/75 99 Room Air 119/58 02/14/17 12:15 95 97 Room Air 02/14/17 12:15 97.6 97 25 142/75 99 Room Air 02/14/17 12:08 97.8 92 16 216/114 95 Labs: Laboratory Tests Test 02/14/17 02/15/17 23:30 07:28 Activated Partial 65.2 SEC 61.2 SEC Thromboplast Time (24.3-30.1) (24.3-30.1) Sodium Level 140 MEQ/L (136-145) Potassium Level 4.0 MEQ/L (3.5-5.1) Chloride Level 108 MEQ/L (98-107) Carbon Dioxide Level 21.6 MEQ/L (21.0-32.0) Anion Gap 10 MEQ/L (5-15) Blood Urea Nitrogen 23 MG/DL (7-18) Creatinine 1.23 MG/DL (0.60-1.30) Estimat Glomerular Filtration 57 ML/MIN (>89) Rate Random Glucose 108 MG/DL (74-106) Calcium Level 7.7 MG/DL (8.5-10.1) Total Creatine Kinase 1647 U/L (39-308) Creatine Kinase MB 102.9 NG/ML (0.5-3.6) Creatine Kinase MB % 6.2 % (0.0-4.0) Troponin I 35.50 NG/ML (0.02-0.05) Triglycerides Level 52 MG/DL (42-150) Cholesterol Level 104 MG/DL (120-200) LDL Cholesterol 29 MG/DL (0-99) HDL Cholesterol 64.8 MG/DL (40.0-60.0) Cholesterol/HDL Ratio 1.60 RATIO Result Diagram: 02/14/17 1225 02/15/17 0728 Imaging: Last Impressions Chest X-Ray 02/14/17 1218 Signed Impressions: Service Date/Time: Tuesday, February 14, 2017 12:18 - CONCLUSION: No acute disease. Curtis Adam MD Cardiovascular: RRR Telemetry: NSR Pulmonary: CTA GI/: NABS Plan: Echo reviewed. Awaiting non-contrast chest CT. Patient and his would like to move toward CABG despite h/o dementia. Preop orders written (1) CAD (coronary artery disease) Plan: Stable overnight. No further CP. No definite CHF/arrhythmias. Dr. Gee consult noted, appreciated. REC try to start low dose beta tere, hold off on EDEN-I or ARB with relatively low BP's and renal insufficiency continue aspirin, heparin drip await CABG (2) Hypertension Plan: Normotensive. Continue to monitor. (3) Hyperlipidemia Plan: Lipid profile pending. Continue statin. Problem Qualifiers (1) CAD (coronary artery disease): Qualified Code: I25.110 - Coronary artery disease involving [place] coronary artery of [place] heart with unstable angina pectoris (2) Hypertension: Qualified Code: I10 - Essential hypertension (3) Hyperlipidemia: Qualified Code: E78.5 - Hyperlipidemia, unspecified hyperlipidemia type Enriqueta Gee MD Feb 15, 2017 09:08
[2017-02-15] MEDS ORDERED: ceFAZolin 2 GM PREMIX 50 ML IV SCH (09:15)
[2017-02-15] MEDS ORDERED: CEFAZOLIN INJ 500 MG in SODIUM CHLORIDE 0.9% IRR BTL 500 ML IRRIGATION SCH (09:15)
[2017-02-15] MEDS ORDERED: METOPROLOL TARTRATE 25 MG TAB PO SCH (09:15)
[2017-02-15] MEDS ORDERED: CHLORHEXIDINE GLUCONATE 4% SOLN 120 ML BTL TOPICAL SCH (09:15)
[2017-02-15] MEDS ORDERED: PAPAVERINE INJ 60 MG, NITROGLYCERIN INJ 100 MCG, DILTIAZEM INJ 100 MG in SODIUM CHLORID... IRRIGATION SCH (09:15)
[2017-02-15] MEDS ORDERED: SODIUM CHLORIDE 0.9% FLUSH 10 ML FLUSH IV FLUSH PRN (09:15)
[2017-02-15] MEDS ORDERED: INSULIN REGULAR (IV INFUSION) 100 UNITS in SODIUM CHLORIDE 0.9% INJ 100 ML IV SCH (09:15)
[2017-02-15] MEDS: MEMANTINE HCL 10 MG TAB PO SCH ×2 (09:57→21:55)
[2017-02-15] MEDS: LEVOTHYROXINE SODIUM 50 MCG TAB PO SCH (09:57)
[2017-02-15] MEDS: CHOLECALCIFEROL (VIT D3) 1000 UNIT TAB PO SCH (09:57)
[2017-02-15] MEDS: CARVEDILOL 3.125 MG TAB PO SCH ×2 (09:57→21:55)
[2017-02-15] MEDS: CARBIDOPA/LEVODOPA 25 MG/100 MG TAB PO SCH ×3 (09:57→21:55)
[2017-02-15] MEDS: MUPIROCIN 2% OINT 1 APPLIC/GM SYR EACH NARE SCH ×2 (09:58→21:00)
[2017-02-15] MEDS: ASPIRIN EC 325 MG TABEC PO SCH (09:58)
--- NOTE | 2017-02-15 11:48 | RADRPT ---
EXAM DATE/TIME: 02/15/2017 09:56 [facility] COMPARISON: No previous studies available for comparison. INDICATIONS : Preop cardiac surgery. MEDICAL HISTORY : Alzheimer's. Dementia. Hypercholesterolemia. Thyroid disease. Tremors. HTN. Dyspnea. Chronic kidney d isease. SURGICAL HISTORY : Cardiac cath. ENCOUNTER: Initial ACUITY: 1 day PAIN SCORE: 0/10 LOCATION: Bilateral leg. TECHNIQUE: Venous ultrasound of the left and right leg was performed from the inguinal ligament to the proximal calf. Real-time, color Doppler and spectral tracing, compression and augmentation techniques were us ed. FINDINGS: RIGHT LEG: There is normal compressibility of the deep venous system from the inguinal region to the proximal ca lf. No echogenic clot is seen in the lumen of the common femoral, femoral, popliteal, and posterior tibial veins. There is a normal response of the venous system to proximal and distal augmentation an d respiration. LEFT LEG: There is normal compressibility of the deep venous system from the inguinal region to the proximal ca lf. No echogenic clot is seen in the lumen of the common femoral, femoral, popliteal, and posterior tibial veins. There is a normal response of the venous system to proximal and distal augmentation an d respiration. CONCLUSION: No evidence of deep venous thrombosis within the lower extremities. Curtis Adam MD on February 15, 2017 at 11:45 Board Certified Radiologist. This report was verified electronically.
[2017-02-15 11:50] VITALS: BP 100/62; PULSE 86; RESP 18
--- NOTE | 2017-02-15 12:02 | HHI.PR ---
Objective Vitals Result Diagram: 02/14/17 1225 02/15/17 0728 Freddy Frias MD Feb 15, 2017 12:02 Date Time Temp Pulse Resp B/P Pulse Ox O2 Delivery O2 Flow Rate FiO2 02/15/17 11:50 86 18 100/62 02/15/17 11:50 86 02/15/17 08:54 93 Room Air 02/15/17 08:50 99.7 96 17 136/81 93 02/15/17 08:50 96 02/15/17 04:00 91 Room Air 02/15/17 04:00 84 02/15/17 04:00 98.3 84 18 119/73 91 02/15/17 00:00 78 02/15/17 00:00 98.7 78 22 151/64 96 02/15/17 00:00 96 Room Air 02/14/17 20:00 96 Room Air 02/14/17 20:00 92 02/14/17 20:00 99.1 92 20 130/73 96 02/14/17 16:00 98 Nasal Cannula 2.00 02/14/17 15:00 86 02/14/17 15:00 97.8 85 16 112/71 98 02/14/17 14:00 85 02/14/17 13:40 95 Nasal Cannula 2.00 02/14/17 13:40 97.7 86 18 116/77 95 02/14/17 12:38 89 22 118/70 99 Room Air 02/14/17 12:35 100 2.00 02/14/17 12:35 100 Nasal Cannula 2.00 02/14/17 12:30 99 Room Air 02/14/17 12:30 99 Room Air 02/14/17 12:28 74 24 142/75 99 Room Air 119/58 02/14/17 12:15 95 97 Room Air 02/14/17 12:15 97.6 97 25 142/75 99 Room Air 02/14/17 12:08 97.8 92 16 216/114 95 I/O 02/14/17 02/14/17 02/14/17 02/15/17 02/15/17 02/15/17 06:59 14:59 22:59 06:59 14:59 22:59 Intake Total 440 ml 852 ml Output Total 400 ml Balance 40 ml 852 ml Intake Oral 0 ml 200 ml IV Total 440 ml 652 ml Output Urine Total 400 ml # Voids 6 # Bowel Movements 0 0 Result Diagram: 02/14/17 1225 02/15/17 0728 Freddy Frias MD Feb 15, 2017 12:02
--- NOTE | 2017-02-15 12:16 | HHI.PR ---
Subjective Remarks seen with son at bedside patient is a 72 yers old male with baseline dementia and Parkonson's disease- baseline ambulates till independently - but slow admitted for ACD- promptly seen by Cardiology and had cardiac cath [facility] [place] now is awake and alert, no complains, oriented to person ff commands Objective Vitals Vital Signs Date Time Temp Pulse Resp B/P Pulse Ox O2 Delivery O2 Flow Rate FiO2 02/15/17 11:50 86 18 100/62 02/15/17 11:50 86 02/15/17 08:54 93 Room Air 02/15/17 08:50 99.7 96 17 136/81 93 02/15/17 08:50 96 02/15/17 04:00 91 Room Air 02/15/17 04:00 84 02/15/17 04:00 98.3 84 18 119/73 91 02/15/17 00:00 78 02/15/17 00:00 98.7 78 22 151/64 96 02/15/17 00:00 96 Room Air 02/14/17 20:00 96 Room Air 02/14/17 20:00 92 02/14/17 20:00 99.1 92 20 130/73 96 02/14/17 16:00 98 Nasal Cannula 2.00 02/14/17 15:00 86 02/14/17 15:00 97.8 85 16 112/71 98 02/14/17 14:00 85 02/14/17 13:40 95 Nasal Cannula 2.00 02/14/17 13:40 97.7 86 18 116/77 95 02/14/17 12:38 89 22 118/70 99 Room Air 02/14/17 12:35 100 2.00 02/14/17 12:35 100 Nasal Cannula 2.00 02/14/17 12:30 99 Room Air 02/14/17 12:30 99 Room Air 02/14/17 12:28 74 24 142/75 99 Room Air 119/58 02/14/17 12:15 95 97 Room Air 02/14/17 12:15 97.6 97 25 142/75 99 Room Air I/O 02/14/17 02/14/17 02/14/17 02/15/17 02/15/17 02/15/17 06:59 14:59 22:59 06:59 14:59 22:59 Intake Total 440 ml 852 ml Output Total 400 ml Balance 40 ml 852 ml Intake Oral 0 ml 200 ml IV Total 440 ml 652 ml Output Urine Total 400 ml # Voids 6 # Bowel Movements 0 0 Result Diagram: 02/14/17 1225 02/15/17 0728 Imaging Last Impressions Chest X-Ray 02/14/17 1218 Signed Impressions: Service Date/Time: Tuesday, February 14, 2017 12:18 - CONCLUSION: No acute disease. Curtis Adam MD Objective Remarks awake and alert, oriented to person only, ff some commands, resting tremors anicteric lungs no rales or wheezes regular rhythm abdomen soft, nontender groin- no hematoma extremities- moves all extremities , no edema, no calf swelling Procedures 02/14- cardiac cath- severe left main disease, 3V disease A/P Assessment and Plan 72 years old male ACS with severe Left main disease, 3V disease, EF 50% History of hypertension CArdiology ff. CVS consulted continue on ASA, BB, heparin drip started on statins- lipid panel pending History of hypothyroidism- on synthroid History of Parkinson's disease- restart Sinemet History of Dementia- - started on home meds Freddy Frias MD Feb 15, 2017 12:16
--- NOTE | 2017-02-15 12:23 | RADRPT ---
EXAM DATE/TIME: 02/15/2017 10:07 [facility] COMPARISON: No previous studies available for comparison. INDICATIONS : Preop cardiac surgery. MEDICAL HISTORY : Dementia. Alzheimer's. Hypercholesterolemia. Thyroid disease. Tremors. HTN. Dyspnea. Chronic kidney d isease. SURGICAL HISTORY : Cardiac cath. ENCOUNTER: Initial ACUITY: 1 day PAIN SCORE: 0/10 LOCATION: Bilateral leg. GREATER SAPHENOUS VEIN THIGH: PROXIMAL: Right 6 mm Left 4 mm MID: Right 2 mm Left 3 mm DISTAL: Right 1 mm Left 2 mm CALF: PROXIMAL: Right 1 mm Left 2 mm MID: Right 1 mm Left 2 mm DISTAL: Right 2 mm Left 2 mm FINDINGS: The venous system of the lower extremities are patent by color Doppler imaging. Measurements of the leg veins (in mm) are listed above. CONCLUSION: Venous mapping as described above. Masood Lozada MD FACR on February 15, 2017 at 12:18 Board Certified Radiologist. This report was verified electronically.
--- NOTE | 2017-02-15 12:36 | RADRPT ---
EXAM DATE/TIME: 02/15/2017 09:41 [facility] COMPARISON: No previous studies available for comparison. INDICATIONS : Preop cardiac surgery. MEDICAL HISTORY : Alzheimer's Dementia. Hypercholesterolemia. Thyroid disease. Tremors. HTN. Dyspnea. Chronic kidney di sease. SURGICAL HISTORY : Cardiac cath. ENCOUNTER: Initial ACUITY: 1 day PAIN SCORE: 0/10 LOCATION: Bilateral neck PEAK SYSTOLIC VELOCITIES (cm/sec): ICA/CCA RATIO: Right: 0.8 Left: 0.7 ICA: Right: 64 Left: 83 CCA: Right: 77 Left: 108 ECA: Right: 103 Left: 88 VERTEBRAL: Right: 30 antegrade Left: 42 antegrade Elevated flow velocities and ICA/CCA ratios have been found to correlate with increased degrees of vessel stenosis, calculated as percentage of diameter relative to a normal segment of distal ICA/CCA FINDINGS: RIGHT CAROTID: Eccentric calcific plaquing. No significant stenosis is visualized. The waveforms are within normal limits. LEFT CAROTID: Eccentric calcific plaquing. No significant stenosis is visualized. The waveforms are within normal limits. VERTEBRAL ARTERIES: Antegrade flow is seen in both vertebral arteries. MISCELLANEOUS: None. CONCLUSION: No evidence of flow-limiting carotid stenosis. Eren Casas MD on February 15, 2017 at 12:31 Board Certified Radiologist. This report was verified electronically.
--- NOTE | 2017-02-15 12:55 | RADRPT ---
EXAM DATE/TIME: 02/15/2017 11:26 [place] COMPARISON: No previous studies available for comparison. INDICATIONS : Right sided chest pain, congestive heart failure RADIATION DOSE: 5.64 CTDIvol (mGy) MEDICAL HISTORY : Dementia. Hypertension. Renal failure, chronic. Thyroid disease SURGICAL HISTORY : None. ENCOUNTER: Initial ACUITY: 1 day PAIN SCALE: 6/10 LOCATION: Right chest TECHNIQUE: Volumetric scanning of the chest was performed. Using automated exposure control and adjustment of t he mA and/or kV according to patient size, radiation dose was kept as low as reasonably achievable to obtain optimal diagnostic quality images. DICOM format image data is available electronically for r eview and comparison. FINDINGS: LUNGS: Mild bilateral basilar atelectasis or infiltrate. PLEURAE: There is no pleural thickening or pleural effusion. MEDIASTINUM: Mild cardiac enlargement. Dense coronary artery calcifications. No evidence of mediastinal mass or ad enopathy. AXILLAE: Within normal limits. No lymphadenopathy. MUSCULOSKELETAL: Within normal limits for patient age. MISCELLANEOUS: The visualized upper abdominal organs demonstrate no acute abnormality. CONCLUSION: Mild bibasilar atelectasis or infiltrate. Eren Casas MD on February 15, 2017 at 12:50 Board Certified Radiologist. This report was verified electronically.
[2017-02-15 13:12] LABS: BLOOD, URINE SMALL (NEG); COMMENT (UR) CULT NOT INDICATED; CULTURE IF INDICATED CULT NOT INDICATED; GLUCOSE,URINE NEG (NEG); KETONE, URINE 40 mg/dL (NEG); MUCUS URINE FEW /lpf (OCC); NITRITE,URINE NEG (NEG); PH, URINE 5.5 (5.0-8.5); URINE COLOR YELLOW (YELLW/STRAW)
[2017-02-15 15:00] VITALS: BP 111/77; PULSE 72; PULSE 76; RESP 18; TEMP 99.4; O2SAT 96
[2017-02-15 20:00] VITALS: BP 118/81; PULSE 110; PULSE 74; PULSE 75; RESP 18; TEMP 97.6; O2SAT 94
[2017-02-15] MEDS: ATORVASTATIN 40 MG TAB PO SCH (21:55)
[2017-02-15] MEDS: GABAPENTIN 300 MG CAP PO SCH (21:55)
[2017-02-15] MEDS: SODIUM CHLORIDE 0.9% FLUSH 10 ML FLUSH IV FLUSH SCH (21:55)
[2017-02-15] MEDS: HEPARIN-D5W INJ 250 ML IV SCH (21:57)
--- NOTE | 2017-02-15 23:52 | EKG ---
Date Performed: 02/14/2017 Time Performed: 12:17:34 PTAGE: 81 years EKG: Sinus rhythm WITH OCCASIONAL VENTRICULAR PREMATURE COMPLEXES INFERIOR MYOCARDIAL INFARCTION ST DEPRESSION, CONSID ER SUBENDOCARDIAL INJURY ABNORMAL ECG NO PREVIOUS TRACING DOCTOR: Marcela Franco Interpretating Date/Time 02/15/2017 23:51:56
[2017-02-16] VITALS (11 sets, daily range): BP systolic 78–126; BP diastolic 41–79; PULSE 50–93; RESP 16–24; TEMP 98.6–99.7; O2SAT 91–96
[2017-02-16 04:48] LABS: APTT (PATIENT) 49.6 SEC (24.3-30.1)
[2017-02-16] MEDS: LEVOTHYROXINE SODIUM 50 MCG TAB PO SCH (06:00)
[2017-02-16] MEDS: CARBIDOPA/LEVODOPA 25 MG/100 MG TAB PO SCH ×3 (06:00→22:00)
[2017-02-16] MEDS: CHOLECALCIFEROL (VIT D3) 1000 UNIT TAB PO SCH (08:35)
[2017-02-16] MEDS: MEMANTINE HCL 10 MG TAB PO SCH ×2 (08:35→21:00)
[2017-02-16] MEDS: ASPIRIN EC 325 MG TABEC PO SCH (08:35)
[2017-02-16] MEDS: MUPIROCIN 2% OINT 1 APPLIC/GM SYR EACH NARE SCH ×2 (08:35→21:00)
[2017-02-16] MEDS: CARVEDILOL 3.125 MG TAB PO SCH ×2 (08:35→21:00)
[2017-02-16] MEDS: CYANOCOBALAMIN 1,000 MCG TAB PO SCH (08:35)
[2017-02-16] MEDS: DONEPEZIL HCL 5 MG TAB PO SCH (08:35)
[2017-02-16] MEDS: SODIUM CHLORIDE 0.9% FLUSH 10 ML FLUSH IV FLUSH SCH ×2 (08:36→23:33)
--- NOTE | 2017-02-16 09:40 | PD.CARD.PN ---
Subjective Subjective Remarks Denies CP, dyspnea, dizziness, palpitations. Slept well. Complains of nonproductive cough. 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 (Lopressor) Aspirin 325 mg 02/15/17 0900 (Ecotrin Ec) DAILY/PO 02/16/17 0835 Carvedilol 3.125 mg 02/15/17 0900 (Coreg) Q12HR/PO 02/16/17 0835 Atorvastatin 40 mg 02/14/17 2100 Calcium HS/PO 02/15/172154 (Lipitor) Heparin Sodium/ 250 ml @ 0 mls/hr 02/14/17 1730 Dextrose TITRATE/IV 02/15/172156 Vital Signs / I&O Vital Signs Date Time Temp Pulse Resp B/P Pulse Ox O2 Delivery O2 Flow Rate FiO2 02/16/17 08:00 91 Room Air 02/16/17 07:00 98.9 72 18 108/65 91 02/16/17 07:00 70 02/16/17 04:00 91 Room Air 02/16/17 04:00 68 02/16/17 04:00 98.9 69 16 96/56 91 02/16/17 00:00 71 20 95/52 95 02/16/17 00:00 70 02/16/17 00:00 95 Room Air 02/15/17 20:00 94 Room Air 02/15/17 20:00 74 02/15/17 20:00 97.6 75 18 118/81 94 02/15/17 16:18 Room Air 02/15/17 15:00 99.4 76 18 111/77 96 02/15/17 15:00 72 02/15/17 12:00 Room Air 02/15/17 11:50 86 18 100/62 02/15/17 11:50 86 I/O 02/15/17 02/15/17 02/15/17 02/16/17 02/16/17 02/16/17 07:00 15:00 23:00 07:00 15:00 23:00 Intake Total 852 ml 646 ml 444 ml Output Total 450 ml 160 ml Balance 852 ml 196 ml 284 ml Intake Oral 200 ml 550 ml 240 ml IV Total 652 ml 96 ml 204 ml Output Urine Total 450 ml 160 ml # Voids 6 5 4 # Bowel Movements 0 1 0 Physical Exam GENERAL: No acute distress. HEENT: Jugular venous pressure is normal. CHEST: Lungs clear to auscultation bilaterally. Unlabored respiratory effort. CARDIAC: Regular rate and rhythm without S3, S4, or murmur. ABDOMEN: Soft, nontender, no hepatosplenomegaly. Bowel sounds present. EXTREMITIES: No clubbing, cyanosis, or edema. Laboratory Laboratory Tests Test 02/15/17 02/15/17 02/16/17 11:45 12:30 04:23 Nasal Screen MRSA (PCR) MRSA NOT DETECTED Urine Color YELLOW Urine Turbidity CLEAR Urine pH 5.5 Urine Specific [place] 1.029 Urine Protein TRACE mg/dL Urine Glucose (UA) NEG mg/dL Urine Ketones 40 mg/dL Urine Occult Blood SMALL Urine Nitrite NEG Urine Bilirubin NEG Urine Urobilinogen 2.0 MG/DL Urine Leukocyte Esterase NEG Urine RBC 1 /hpf Urine WBC LESS THAN 1 /hpf Urine Mucus FEW /lpf Microscopic Urinalysis Comment CULT NOT INDICATED Activated Partial 49.6 SEC Thromboplast Time Assessment and Plan Problem List: (1) CAD (coronary artery disease) Assessment and Plan: Stable overnight. No further CP. No definite CHF/ arrhythmias. Appears patient not candidate for CABG. Risk of PCI of left main with already totally occluded RCA would be prohibitive. REC medical therapy of his CAD continue beta tere; BP's too low to increase beta etre dosing or add ARB, EDEN-I continue aspirin, will also add clopidogrel will be out of town until 02/22/17; please call my coverage if additional cardiac questions or problems arise, OK to transfer patient out of ICU from my standpoint (2) Hypertension Assessment and Plan: Hypertension not active issue. (3) Hyperlipidemia Assessment and Plan: Lipid profile very good. Nonetheless rec continue statin therapy in light of his severe CAD. Code Status full code Discussed Condition With patient and his Problem Qualifiers (1) CAD (coronary artery disease): Qualified Code: I25.110 - Coronary artery disease involving [place] coronary artery of [place] heart with unstable angina pectoris (2) Hypertension: Qualified Code: I10 - Essential hypertension (3) Hyperlipidemia: Qualified Code: E78.5 - Hyperlipidemia, unspecified hyperlipidemia type Cooper Duarte MD Feb 16, 2017 09:40
[2017-02-16] MEDS ORDERED: CLOPIDOGREL 75 MG TAB PO SCH (10:00)
--- NOTE | 2017-02-16 13:03 | HHI.PR ---
Subjective Remarks patient appears comfortable. up on bedside commode denies any chest pain or shortness of breath but feels lousy - "don't want to be here" at bedside per ate good for breakfast + flatus Objective Vitals Vital Signs Date Time Temp Pulse Resp B/P Pulse Ox O2 Delivery O2 Flow Rate FiO2 02/16/17 12:00 92 Room Air 02/16/17 11:00 98.6 66 16 86/62 92 02/16/17 11:00 66 02/16/17 08:00 91 Room Air 02/16/17 07:00 98.9 72 18 108/65 91 02/16/17 07:00 70 02/16/17 04:00 91 Room Air 02/16/17 04:00 68 02/16/17 04:00 98.9 69 16 96/56 91 02/16/17 00:00 71 20 95/52 95 02/16/17 00:00 70 02/16/17 00:00 95 Room Air 02/15/17 20:00 94 Room Air 02/15/17 20:00 74 02/15/17 20:00 97.6 75 18 118/81 94 02/15/17 16:18 Room Air 02/15/17 15:00 99.4 76 18 111/77 96 02/15/17 15:00 72 I/O 02/15/17 02/15/17 02/15/17 02/16/17 02/16/17 02/16/17 07:00 15:00 23:00 07:00 15:00 23:00 Intake Total 852 ml 646 ml 444 ml Output Total 450 ml 160 ml Balance 852 ml 196 ml 284 ml Intake Oral 200 ml 550 ml 240 ml IV Total 652 ml 96 ml 204 ml Output Urine Total 450 ml 160 ml # Voids 6 5 4 # Bowel Movements 0 1 0 Result Diagram: 02/14/17 1225 02/15/17 0728 Imaging Last Impressions Lower Extremity Ultrasound 02/15/17 0000 Signed Impressions: Service Date/Time: Wednesday, February 15, 2017 10:07 - CONCLUSION: Venous mapping as described above. Masood Lozada MD FACR Chest CT 02/15/17 0000 Signed Impressions: Service Date/Time: Wednesday, February 15, 2017 11:26 - CONCLUSION: Mild bibasilar atelectasis or infiltrate. Eren Casas MD Carotid Artery Ultrasound 02/15/17 0000 Signed Impressions: Service Date/Time: Wednesday, February 15, 2017 09:41 - CONCLUSION: No evidence of flow-limiting carotid stenosis. Eren Casas MD Chest X-Ray 02/14/17 1218 Signed Impressions: Service Date/Time: Tuesday, February 14, 2017 12:18 - CONCLUSION: No acute disease. Curtis Adam MD Objective Remarks awake and alert, oriented to person only, ff some commands, mild resting tremors anicteric lungs no rales or wheezes regular rhythm abdomen soft, nontender groin- no hematoma extremities- moves all extremities , no edema, no calf swelling Procedures 02/14- cardiac cath- severe left main disease, 3V disease A/P Assessment and Plan 72 years old male ACS with severe Left main disease, 3V disease, EF 50% History of hypertension CArdiology ff. CVS consulted- not a candidate for surgery- failed PFTs continue on ASA, BB, Plavix started on statins- History of hypothyroidism- on synthroid History of Parkinson's disease- Sinemet History of Dementia- - started on home meds Transfer to [facility]-d/w at length code status- per - based on expressed wishes in the past- does - does not want to be on any machines ADD 4 55 pm patient develops persistent chest pain tachycardic- sinus, BPs equal on both extremities started on NTG drip, Heparin drip give IV Morphine prn for pain d/w Cardiology d/w family- in the event of arrest or distress- No code family does not want any vascular surgery optimize medical management Freddy Frias MD Feb 16, 2017 13:02
[2017-02-16] MEDS ORDERED: HEPARIN 25,000 UNITS-D5W 250 ML - PREMIX IV SCH (15:45)
[2017-02-16] MEDS ORDERED: HEPARIN SODIUM - IV 10,000 UNITS/10 ML VIAL IV PRN ×2 (15:45)
[2017-02-16] MEDS ORDERED: HEPARIN SODIUM - IV 10,000 UNITS/10 ML VIAL IV ONE (16:00)
[2017-02-16] MEDS ORDERED: NITROGLYCERIN-DEXTROSE INJ 250 ML ONE (16:03)
[2017-02-16] MEDS ORDERED: NITROGLYCERIN/DEXTROSE 5% 250 ML for chest pain IV SCH (16:15)
[2017-02-16] MEDS ORDERED: MORPHINE SULFATE 4 MG/ML INJ IV PUSH PRN (16:45)
[2017-02-16] MEDS ORDERED: oxyCODONE/ACETAMINOPHEN 5 MG/325 MG TAB PO ONE (17:15)
[2017-02-16] MEDS ORDERED: QUEtiapine FUMARATE 25 MG TAB PO ONE (17:45)
[2017-02-16] MEDS ORDERED: PANTOPRAZOLE SODIUM 40 MG VIAL IV PUSH SCH (18:00)
[2017-02-16] MEDS ORDERED: D5-NS + KCL 20 MEQ INJ 1,000 ML IV SCH (18:00)
--- NOTE | 2017-02-16 18:27 | PD.CARD.PN ---
Subjective Subjective Remarks Called for the patient having chest pain around 3:30pm Patient does have baseline dementia, but appears uncomfortable and says he is having chest pain, but has trouble describing his pain Objective Vital Signs / I&O Vital Signs Date Time Temp Pulse Resp B/P Pulse Ox O2 Delivery O2 Flow Rate FiO2 02/16/17 15:00 80 02/16/17 15:00 98.9 78 20 126/79 94 02/16/17 12:00 92 Room Air 02/16/17 11:00 98.6 66 16 86/62 92 02/16/17 11:00 66 02/16/17 08:00 91 Room Air 02/16/17 07:00 98.9 72 18 108/65 91 02/16/17 07:00 70 02/16/17 04:00 91 Room Air 02/16/17 04:00 68 02/16/17 04:00 98.9 69 16 96/56 91 02/16/17 00:00 71 20 95/52 95 02/16/17 00:00 70 02/16/17 00:00 95 Room Air 02/15/17 20:00 94 Room Air 02/15/17 20:00 74 02/15/17 20:00 97.6 75 18 118/81 94 I/O 02/15/17 02/15/17 02/15/17 02/16/17 02/16/17 02/16/17 07:00 15:00 23:00 07:00 15:00 23:00 Intake Total 852 ml 646 ml 444 ml Output Total 450 ml 160 ml Balance 852 ml 196 ml 284 ml Intake Oral 200 ml 550 ml 240 ml IV Total 652 ml 96 ml 204 ml Output Urine Total 450 ml 160 ml # Voids 6 5 4 # Bowel Movements 0 1 0 Laboratory Laboratory Tests Test 02/16/17 04:23 Activated Partial 49.6 SEC Thromboplast Time Assessment and Plan Problem List: (1) CAD (coronary artery disease) (2) Hypertension (3) Hyperlipidemia Assessment and Plan 1) Known significant CAD, not a surgical candidate Reviewed cardiac catheterization films, not a candidate for any percutaneous intervention 2) Discussed with the family that we will attempt to increase medication to help , but obviously a concern with his significant disease and no real intervention to help, they understand 3) Started back on a heparin drip with bolus 4) Nitro gtt started, titrating up 5) Discussed with Dr. Frias Given Morphine which relieved pain, placed on PRN 6) Will load with Plavix, con't heparin drip for now 7) Will need further anti-anginal medications as possible Problem Qualifiers (1) CAD (coronary artery disease): Qualified Code: I25.110 - Coronary artery disease involving [place] coronary artery of [place] heart with unstable angina pectoris (2) Hypertension: Qualified Code: I10 - Essential hypertension (3) Hyperlipidemia: Qualified Code: E78.5 - Hyperlipidemia, unspecified hyperlipidemia type Randy Stout DO Feb 16, 2017 18:27
[2017-02-16] MEDS: ALUMINUM/MAGNESIUM/SIMETH 30 ML CUP PO SCH (19:00)
--- NOTE | 2017-02-16 20:00 | EKG ---
Date Performed: 02/16/2017 Time Performed: 15:06:10 PTAGE: 81 years EKG: BASELINE ARTIFACT PRESENT. Probable Sinus rhythm Leftward axis Inferior infarct - age undetermined Anterolateral ST-T changes are nonspecific Abnorma l ECG COMPARED TO PRIOR ELECTROCARDIOGRAM, ST depressions are less marked.PVCs are no longer present. PREVIOUS TRACING : 02/14/2017 12.17 DOCTOR: Raul Victor Interpretating Date/Time 02/16/2017 19:59:06
[2017-02-16] MEDS: ATORVASTATIN 40 MG TAB PO SCH (21:00)
[2017-02-16] MEDS: GABAPENTIN 300 MG CAP PO SCH (21:00)
[2017-02-16 22:07] LABS: AUTOMATED NEUTROPHIL # 11.9 TH/MM3 (1.8-7.7); BASOPHIL % 0.3 % (0.0-2.0); HEMATOCRIT 34.3 % (39.0-51.0); HEMO FLAGS DIFF FINAL; LYMPH % 10.5 % (9.0-44.0); LYMPHOCYTE # 1.5 TH/MM3 (1.0-4.8); MEAN CELL VOLUME 87.1 FL (80.0-100.0); MEAN CORPUSCULAR HEMOGLOBIN 29.3 PG (27.0-34.0); MEAN CORPUSCULAR HGB CONC 33.7 % (32.0-36.0); MONO % 8.6 % (0.0-8.0); NEUT % 80.6 % (16.0-70.0); PLATELET COUNT 154 TH/MM3 (150-450); RED BLOOD COUNT 3.94 MIL/MM3 (4.50-5.90); RED CELL DISTRIBUTION WIDTH 12.7 % (11.6-17.2); WHITE BLOOD COUNT 14.7 TH/MM3 (4.0-11.0)
[2017-02-16 22:13] LABS: APTT (PATIENT) 59.6 SEC (24.3-30.1)
[2017-02-16 22:23] LABS: POTASSIUM 3.9 MEQ/L (3.5-5.1)
[2017-02-17] MEDS: ALUMINUM/MAGNESIUM/SIMETH 30 ML CUP PO SCH
[2017-02-17] MEDS ORDERED: NOREPINEPHRINE 4 MG/D5W 250 ML IV SCH (00:15)
[2017-02-17] MEDS ORDERED: NOREPINEPHRINE INJ 4 MG in SODIUM CHLOR 0.9% 250 ML INJ 250 ML IV SCH (00:30)
--- NOTE | 2017-02-17 02:23 | HHI.DS ---
Summary Note Date of : Feb 17, 2017 Time Of : 01:49 Admission Date Feb 14, 2017 at 12:34 Admitting Diagnosis STEMI Diagnosis at Time of : (1) Cardiogenic shock ICD Code: R57.0 Procedures 02/14- cardiac cath- severe left main disease, 3V disease CBC/BMP: 02/16/17 2144 02/16/17 2144 Significant Findings Laboratory Tests Test 02/14/17 02/14/17 02/14/17 02/15/17 12:25 19:00 23:30 07:28 White Blood Count 11.4 TH/MM3 (4.0-11.0) Neutrophils # (Auto) 7.8 TH/MM3 (1.8-7.7) Prothrombin Time 12.6 SEC (9.8-11.6) Bedside Blood Urea Nitrogen 27 MG/DL (8-26) Blood Urea Nitrogen 26 MG/DL (7-18) 23 MG/DL (7-18) Creatinine 1.60 MG/DL (0.60-1.30) Bedside Creatinine 1.5 MG/DL (0.8-1.3) Estimat Glomerular Filtration 42 ML/MIN (>89) 57 ML/MIN (>89) Rate Bedside Glucose 112 MG/DL (60-95) Total Creatine Kinase 1251 U/L 1579 U/L 1647 U/L (39-308) (39-308) (39-308) Creatine Kinase MB 126.5 NG/ML 155.8 NG/ML 102.9 NG/ML (0.5-3.6) (0.5-3.6) (0.5-3.6) Creatine Kinase MB % 10.1 % 9.9 % (0.0-4.0) 6.2 % (0.0-4.0) (0.0-4.0) Troponin I 22.20 NG/ML 35.50 NG/ML (0.02-0.05) (0.02-0.05) B-Type Natriuretic Peptide 236 PG/ML (0-100) Activated Partial 65.2 SEC 61.2 SEC Thromboplast Time (24.3-30.1) (24.3-30.1) Chloride Level 108 MEQ/L (98-107) Random Glucose 108 MG/DL (74-106) Calcium Level 7.7 MG/DL (8.5-10.1) Cholesterol Level 104 MG/DL (120-200) HDL Cholesterol 64.8 MG/DL (40.0-60.0) Test 02/15/17 02/16/17 02/16/17 12:30 04:23 21:44 Urine Ketones 40 mg/dL (NEG) Urine Occult Blood SMALL (NEG) Urine Mucus FEW /lpf (OCC) Activated Partial 49.6 SEC 59.6 SEC Thromboplast Time (24.3-30.1) (24.3-30.1) White Blood Count 14.7 TH/MM3 (4.0-11.0) Red Blood Count 3.94 MIL/MM3 (4.50-5.90) Hemoglobin 11.6 GM/DL (13.0-17.0) Hematocrit 34.3 % (39.0-51.0) Neutrophils (%) (Auto) 80.6 % (16.0-70.0) Monocytes (%) (Auto) 8.6 % (0.0-8.0) Neutrophils # (Auto) 11.9 TH/MM3 (1.8-7.7) Monocytes # (Auto) 1.3 TH/MM3 (0-0.9) Chloride Level 108 MEQ/L (98-107) Carbon Dioxide Level 19.0 MEQ/L (21.0-32.0) Blood Urea Nitrogen 30 MG/DL (7-18) Creatinine 1.50 MG/DL (0.60-1.30) Estimat Glomerular Filtration 45 ML/MIN (>89) Rate Random Glucose 133 MG/DL (74-106) Calcium Level 7.6 MG/DL (8.5-10.1) Hospital Course I was called by pt's nurse that pt had at 01:49A.M Patient was DNR. No code was performed. Chart reviewed. Case was discussed with patient's nurse. At around 5 PM yesterday, patient's doctors noted that patient was complaining of persistent ongoing chest pains. At that time he was started on nitroglycerin drip and heparin drip. He was managed here for severe CAD, who is not a candidate for cardiovascular intervention per chart. He was therefore managed medically. During the night, patient's blood pressures were also coming down and therefore patient's nurse had called patient's primary daytime Dr. who had placed orders for IV fluid bolus and vasopressors. Nurse stated that patient's blood pressure continued to go down and was also becoming hypoxic requiring 100% FiO2 on nonrebreather. Then at one point around 01:49 AM, patient sat up on the bed tachypneic gasping breath and suddenly per nursing reports. Shahzad William MD Feb 17, 2017 02:23
--- NOTE | 2017-02-17 11:36 | EKG ---
Date Performed: 02/16/2017 Time Performed: 20:21:10 PTAGE: 81 years EKG: Atrial fibrillation. Leftward axis Inferior infarct - age undetermined Anterolateral T wave changes are nonspecific Abnormal ECG COMPARED TO PRIOR ELECTROCARDIOGRAM, Atrial fibrillation is pre sent. PREVIOUS TRACING : 02/16/2017 15.06 DOCTOR: Raul Victor Interpretating Date/Time 02/17/2017 11:35:42
[2017-02-17] MEDS ORDERED: SODIUM CHLORID 0.9% 500 ML INJ 500 ML IV ONE (23:05)
== END 2017-02-17 07:51 | disposition expired ==
LOC: NEPE 12:03 → NEDA 12:34 → HCVR 13:35
PROVIDERS: ADMIT Internal Medicine; ATTEND Internal Medicine
PROC: 4A023N7 Measurement of Cardiac Sampling and Pressure, Left Heart, Percutaneous Approach (ICD-10-PCS; principal; 2017-02-14)
PROC: B2111ZZ Fluoroscopy of Multiple Coronary Arteries using Low Osmolar Contrast (ICD-10-PCS; 2017-02-14)
PROC: B2151ZZ Fluoroscopy of Left Heart using Low Osmolar Contrast (ICD-10-PCS; 2017-02-14)
DX: I21.3 ST elevation (STEMI) myocardial infarction of unspecified site (principal); R57.0 Cardiogenic shock; G20 Parkinson's disease; G30.9 Alzheimer's disease, unspecified; F02.80 Dementia in other diseases classified elsewhere, unspecified severity, without behavioral disturbance, psychotic disturbance, mood disturbance, and anxiety; I10 Essential (primary) hypertension; I25.110 Atherosclerotic heart disease of native coronary artery with unstable angina pectoris; E03.9 Hypothyroidism, unspecified; E78.5 Hyperlipidemia, unspecified; N28.9 Disorder of kidney and ureter, unspecified; R09.02 Hypoxemia; Z66 Do not resuscitate; Z82.49 Family history of ischemic heart disease and other diseases of the circulatory system; Z87.891 Personal history of nicotine dependence
CPT/HCPCS: 71010; 71250; 80048; 80061; 81001; 82310; 82435; 82550; 82552; 82565; 82947; 83690; 83735; 83880; 84132; 84295; 84484; 84520; 85002; 85025; 85610; 85730; 87641; 93005; 93306; 93458; 93880; 93970; 93998; 94010; C1760; C1769; C1893; C9113; G0269; J1644; J2250; J3480; J7030; J7040; J7050